=== PATIENT | male | born 1970 | race Two or more races ===

== ENCOUNTER 2025-05-09 11:22 | Outpatient (CLI) | payer OTHER ==
[2025-05-12] MEDS ORDERED: MICARDIS40 MG PO (10:18)
== END 2025-05-09 11:29 | disposition home or self-care (01) ==
LOC: RAD 11:22
PROVIDERS: ATTEND Orthopaedic Surgery
DX: Z01.818 Encounter for other preprocedural examination (principal)

== ENCOUNTER 2025-05-12 13:13 | Day surgery (SDC) | payer OTHER ==
[~2025-05-12] VITALS: Ht 182.9 cm; Wt 108.9 kg
[2025-05-12 10:27] VITALS: BP 129/90
[~2025-05-12 13:13] MED LIST: MICARDIS40 MG PO
[2025-05-12] MEDS ORDERED: EPINEPHRINE HCL/PF 1 MG/ML AMPUL ONE (13:53)
[2025-05-12] MEDS ORDERED: METHYLPREDNISOLONE ACETATE 80 MG/ML VIAL ONE (14:27)
[2025-05-12] MEDS ORDERED: TRAM1TAB98 PO (15:45)
[2025-05-12] MEDS ORDERED: DUI500 PO (15:45)
[2025-05-12] MEDS ORDERED: ASA325 M1 PO (15:45)
== END 2025-05-12 21:05 | disposition home or self-care (01) ==
LOC: CIR.AMB 13:13
PROVIDERS: ATTEND Orthopaedic Surgery
DX: S83.232A Complex tear of medial meniscus, current injury, left knee, initial encounter (principal); S83.272A Complex tear of lateral meniscus, current injury, left knee, initial encounter; M67.362 Transient synovitis, left knee; M94.262 Chondromalacia, left knee; M23.42 Loose body in knee, left knee